=== PATIENT | female | born 2005 | race Two or more races ===

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

== ENCOUNTER 2025-04-29 13:58 | Emergency (ER) | payer OTHER ==
[~2025-04-29] VITALS: Ht 160 cm; Wt 68.2 kg
[2025-04-29 14:13] VITALS: BP 104/66; PULSE 75; RESP 18; TEMP 98.4; O2SAT 99
[2025-04-29] MEDS: BACITRACIN 0.9 GM PACKET OINTMENT TP ONE (15:57)
== END 2025-04-29 16:10 | disposition home or self-care (01) ==
LOC: EMS 14:00
DX: S80.211A Abrasion, right knee, initial encounter (principal); S80.212A Abrasion, left knee, initial encounter; F12.90 Cannabis use, unspecified, uncomplicated; V00.141A Fall from scooter (nonmotorized), initial encounter; Y93.89 Activity, other specified; Y92.89 Other specified places as the place of occurrence of the external cause; Y99.8 Other external cause status
CPT/HCPCS: 99282; Z7502; Z7610